=== PATIENT | female | born 1930 | race Caucasian/White ===

== ENCOUNTER 2018-11-17 21:56 | Inpatient (IN) ==
[2018-11-17 22:42] LABS: BASO# 0.04 X1000 (0.0-0.2); BASO% 0.8 % (0.0-0.8); EOS# 0.17 X1000 (0.0-0.7); EOS% 3.5 % (0.0-10.0); HEMATOCRIT 30.9 % (37.0-47.0); HEMOGLOBIN 9.1 g/dL (12.0-16.0); IMM GRAN# 0.02 X1000 (0.0-0.04); IMM GRAN% 0.4 % (0.0-0.5); LYMPH# 1.23 X1000 (1.2-3.4); LYMPH% 25.3 % (20.5-51.1); MCH 24.2 PG (27-31); MCHC 29.4 g/dL (33-37); MCV 82.2 FL (81-99); MONO# 0.53 X1000 (0.11-0.59); MONO% 10.9 % (1.7-9.3); MPV 9.3 FL (7.4-10.4); NEUT# 2.88 X1000 (1.4-6.5); NEUT% 59.1 % (42.2-75.2); PLT 256 X1000 (130-400); RBC 3.76 XMIL (4.2-5.4); RDW 20.1 % (11.5-14.5); WBC 4.87 X1000 (4.8-10.8)
[2018-11-17 23:04] LABS: AGAP 11; ALB/GLOB RATIO 0.8; ALBUMIN 2.6 g/dL (3.5-5.0); ALKALINE PHOSPHATASE 118 U/L (32-104); BUN 24 mg/dL (8-22); CALCIUM 8.4 mg/dL (8.8-10.2); CHLORIDE 102 mmol/L (98-107); COSMO 286; CREATININE 0.7 mg/dL (0.5-0.9); ESTIMATED GFR > 60; GLUCOSE 113 mg/dL (70-104); GOT 25 U/L (10-30); GPT 8 U/L (10-36); POTASSIUM 3.9 mmol/L (3.5-5.1); SODIUM 141 mmol/L (136-145); TCO2 28 mmol/L (25-35); TOTAL BILIRUBIN 0.81 mg/dL (0.20-1.00)
[2018-11-17 23:06] LABS: INR 3.6; PROTIME 38.4 Seconds (11.0-16.0)
[2018-11-18] MEDS ORDERED: VITAMIN K PO ONE (00:05)
--- NOTE | 2018-11-18 01:12 | PROVIDER DOCUMENTATION ---
This chart was entered by Kassie Wu Scribe, acting as scribe for Dejon Centeno MD. HPI-Abdominal Pain/GI Problem - General Chief Complaint: GI Bleed Stated Complaint: RECTAL BLEEDING Time Seen by Provider: 11/17/18 22:18 Source: patient Allergies/Adverse Reactions: Patient Allergies Allergy/AdvReac Type Severity Reaction Status Date / Time No Known Allergies Allergy Verified 11/18/18 00:43 Home Medications: Home Medication List Medication Instructions Recorded Confirmed Last Taken Type Aspirin 81 mg PO DAILY 04/24/13 11/18/18 11/17/18 History Levothyroxine [Synthroid] 125 microgm PO DAILY 04/24/13 11/18/18 11/17/18 History Polyethylene Glycol 3350 [Miralax] 17 gm PO DAILY 04/24/13 11/18/18 11/16/18 History Sotalol [Betapace] 80 mg PO Q12H #0 tablet 04/27/13 11/18/18 11/17/18 Rx Warfarin [Coumadin] 3 mg PO QHS #0 tablet 04/27/13 11/18/18 11/16/18 Rx Furosemide [Lasix] 1 tab PO DAILY 11/18/18 11/18/18 11/17/18 History Hydrochlorothiazide 1 tab PO DAILY 11/18/18 11/18/18 11/17/18 History Isosorbide Mononitrate E.r. [Imdur] 1 tab PO DAILY 11/18/18 11/18/18 11/17/18 History Losartan Potassium [Cozaar] 1 tab PO DAILY 11/18/18 11/18/18 11/17/18 History Ranitidine [Zantac] 1 tab PO DAILY 11/18/18 11/18/18 11/17/18 History - History of Present Illness-ABD Nature of Presenting Problems: pt is a 88 yr old female presenting with 1 day hx of passing blood, pt reports noticed bright red rectal bleeding onset last night, pt denies any pain, no nausea, vomiting or diarrhea. Quality of Pain: reports: none Severity in ED: reports: moderate Onset/Duration: reports: 24 hours ago Timing: reports: still present Activities at Onset: reports: light activity Exposure to sick contacts?: No Modifying Factors: improves with: nothing Associated Symptoms: denies: diarrhea, fatigue, fever/chills, nausea, vomiting, weakness Last BM: this evening Dark Stools Present?: reports: bright red blood Rectal Bleeding: reports: bleeding without stool Rectal Pain: reports: none Emesis Description: reports: none Bruising or Bleeding Gums?: No Similar Symptoms Previously?: No Recently seen or treated by another doctor?: No Review of Systems - Adult - REVIEW OF SYSTEMS - ADULT Constitutional: denies: fever, fatique Eyes: reports: no symptoms reported Ears, Nose, Mouth & Throat: reports: no symptoms reported Cardiovascular: reports: no symptoms reported Respiratory: denies: cough, shortness of breath Gastrointestinal: reports: rectal bleeding. denies: abdominal pain, hematemesis , diarrhea, nausea, vomiting Genitourinary: reports: no symptoms reported Musculoskeletal: reports: no symptoms reported Integumentary: reports: no symptoms reported Neurological: reports: no symptoms reported Psychiatric: reports: no symptoms reported Endocrine: reports: no symptoms reported Hematologic/Lymphatic: reports: no symptoms reported Allergic/Immunologic: reports: no symptoms reported All Other Systems: Reviewed and Negative Past History - Adult - PAST MEDICAL HISTORY-ADULT Review of Records: reports: Nursing Assessment Review, Medications Reviewed, Social history reviewed & non-contributory. Major Childhood Illnesses: reports: denies history Cardiovascular: reports: denies history Respiratory: reports: denies history Gastrointestinal: reports: denies history Obstetrical/Gynecological: reports: denies history Genitourinary: reports: denies history Musculoskeletal: reports: denies history Neurological: reports: denies history Endocrine/Immune: reports: denies history Other Conditions: reports: denies history - IMMUNIZATION STATUS Childhood Immunizations: See Nurse Assessment Flu Vaccine: See Nurse Assessment - FAMILY HISTORY Family History: reviewed, not pertinent - SOCIAL HISTORY Living Situation: family Physical Exam-General - PHYSICAL EXAM-ADULT Initial Vital Signs Reviewed: Yes - CONSTITUTIONAL General Appearance: appears well, alert, no apparent distress - EYES Eyes: PERRL/EOMI - HEAD, EARS, NOSE, MOUTH & THROAT HENMT: normocephalic/atraumatic, moist mucous membranes, normal ENT inspection - NECK Neck: non-tender, full range of motion, supple, normal inspection - RESPIRATORY Respiratory: chest non-tender, lungs clear, normal breath sounds - CARDIOVASCULAR Cardiovascular: normal peripheral pulses, regular rate, rhythm, no edema - GASTROINTESTINAL (ABDOMEN) Abdominal Exam: normal bowel sounds, non tender, soft - GENITOURINARY Rectal Exam: other (bright red blood noted). negative: hemorrhoids, mass - LYMPHATIC Lymphatic: no adenopathy - MUSCULOSKELETAL Back Exam: normal inspection, no CVA tenderness, no vertebral tenderness Extremity: normal range of motion, non-tender, normal gait, normal inspection - SKIN Integumentary: normal color, normal turgor, warm/dry - NEUROLOGIC Neurologic: grossly normal, no motor/sensory deficits - PSYCHIATRIC Psych/Mental Status: normal mood/affect, normal thought content, normal thought process, oriented x 3 Progress - PLAN OF CARE/RESULTS Progress/Plan/Lab Results: Laboratory Results - last 24 hr 11/17/18 11/17/18 11/17/18 22:19 22:19 22:19 WBC 4.87 RBC 3.76 L Hgb 9.1 L Hct 30.9 L MCV 82.2 MCH 24.2 L MCHC 29.4 L RDW Std Deviation 20.1 H Plt Count 256 MPV 9.3 Immature Gran % (Auto) 0.4 Neut % (Auto) 59.1 Lymph % (Auto) 25.3 [place] % (Auto) 10.9 H Eos % (Auto) 3.5 Baso % (Auto) 0.8 Immature Gran # (Auto) 0.02 Neut # (Auto) 2.88 Lymph # (Auto) 1.23 [place] # (Auto) 0.53 Eos # (Auto) 0.17 Baso # (Auto) 0.04 PT 38.4 H INR 3.60 Sodium 141 Potassium 3.9 Chloride 102 Carbon Dioxide 28 Anion Gap 11 BUN 24 H Creatinine 0.7 Estimated GFR/1.73 m2 > 60 BUN/Creatinine Ratio 34 Glucose 113 H Calculated Osmolality 286 Calcium 8.4 L Total Bilirubin 0.81 AST 25 ALT 8 L Alkaline Phosphatase 118 H Total Protein 6.0 L Albumin 2.6 L Globulin 3.4 Albumin/Globulin Ratio 0.8 Orders Category Date Time Status Saline Loc NOW Care 11/18/18 00:03 Active CBC WITH ELECTRONIC DIFF [HEME] Stat Lab 11/17/18 22:19 Completed CMP [COMPREHENSIVE METABOLIC PANEL] [CHEM] Stat Lab 11/17/18 22:19 Completed PROTIME WITH INR [COAG] Stat Lab 11/17/18 22:19 Completed Stool [OCCULT BLOOD SCREENING] [STOOL] Stat Lab 11/17/18 22:17 Uncollected TYPE & SCREEN [BBK] Stat Lab 11/17/18 22:19 Received Phytonadione [Vitamin K] Med 11/18/18 00:05 Discontinued 5 mg PO NOW ONE Result Diagrams: 11/17/18 22:19 11/17/18 22:19 - REASSESSMENT Reassessment #1 Time Reassessed: 01:10 - CONSULTS/PCP/HOSPITALIST Notification #1 *Consult/PCP/Hospitalist*: Dr Gallo Time Discussed: 01:11 Consult Disposition: Admit Departure - Departure Date of Disposition Decision: 11/18/18 Time of Disposition Decision: 01:10 DIAGNOSIS: GI bleeding Qualifiers: GI bleed type/associated pathology: anorectal hemorrhage Qualified Code(s): K62.5 - Hemorrhage of anus and rectum Disposition: ADMITTED INPATIENT 09 Certified Medical Emergency: Emergent Condition: Stable Referrals and Follow-Ups: Aimee Flores CRNP [Primary Care Provider] - - Critical Care Note This patient required my direct & personal management of CC.: No Attestation - Physician/ YANELIS Attestation The physician spent face to face time with patient:: Yes Advanced Practice Provider documentation review:: Supervising physician onsite and consulted in the evaluation and care of this patient. The physician did have a face to face encounter with the patient. This chart was documented by the indicated scribe, (Kassie Wu Scribe) and accurately reflects the services I performed and decisions made by me, Dejon Centeno MD, as attested by the provider's signature.
[2018-11-18] MEDS ORDERED: ZOFRAN IV PRN (01:30)
[2018-11-18] MEDS: PROTONIX IV SCH ×2 (02:55→14:30)
[2018-11-18] MEDS: SODIUM CHLORIDE 0.9% INJ SCH (02:55)
--- NOTE | 2018-11-18 04:04 | HISTORY AND PHYSICAL ---
CHIEF COMPLAINT: Blood in stool. HISTORY OF PRESENT ILLNESS: Ms. Collins is a very pleasant 88-year-old female with a past medical history of hypothyroidism, hypertension, atherosclerotic coronary artery disease, peripheral vascular disease, status post porcine aortic valve replacement in [address] Leslie at [facility] and chronic atrial fibrillation as well as congestive heart failure who is on chronic Coumadin anticoagulation, who comes in tonight after having 24 hours of bright red blood in her stool. She has family at bedside who state that she has had fairly copious amounts of bleeding roughly 1-2 bowel movements every hour. On arrival, the patient was noted to be pale. Her hemoglobin and hematocrit were 9.1 and 30.9 respectively. Her INR was noted to be 3.60 but with her valve replacement they stated they shoot for a goal of 2.6-3.6 on her INR. She was given 5 mg of vitamin K p.o. by the ER provider. She will receive 2 units of FFP as well as 1 unit of PRBC with 40 mg of Lasix in between. She will be placed in the ICU for further evaluation and treatment and GI consultation. PAST MEDICAL HISTORY: See HPI. PREVIOUS SURGICAL HISTORY: 1. Right hip in 2009. 2. Hysterectomy in 1973. 3. Porcine aortic valve replacement in 2006. 4. Left knee replacement in 2011. ALLERGIES: No known drug allergies. FAMILY HISTORY: Father at 52 from a myocardial infarction. Mother at 75 from a stroke. One brother from myocardial infarction, another with coronary artery disease. One brother related to suicide. SOCIAL HISTORY: with 4 children. Has 13 grandchildren and 20 great- grandchildren. No tobacco, alcohol or illicit drugs. HOME MEDICATIONS: A list of home medications has not been reconciled. An order was placed for Nursing to reconcile home medications in the computer. These will be restarted when appropriate. PHYSICAL EXAMINATION: VITAL SIGNS: Temperature 97.4, pulse 77, respirations 24, blood pressure 111/70 , oxygen saturation 98% on room air. GENERAL: Very pleasant 88-year-old female somewhat hard of hearing, alert and oriented times 3, answers all questions appropriately. Family at bedside very attentive. HEENT: Head is atraumatic, normocephalic. Pupils equal, round, reactive to light. Extraocular eye movement intact. Sclerae are anicteric. Conjunctiva is pale. Oral mucosa is mildly dry. NECK: Supple. No JVD. No thyromegaly. Trachea is midline. No cervical lymphadenopathy. CARDIAC: S1 and S2 appreciated. No murmurs, gallops, rubs. LUNGS: Clear to auscultation bilaterally. No rhonchi, wheezes, rales. Symmetric rise and fall with respirations. ABDOMEN: Soft, nondistended, nontender. Bowel sounds present all 4 quadrants, hyperactive. No pulsatile mass. No organomegaly. EXTREMITIES: No clubbing or cyanosis. One-plus pitting edema bilateral lower extremities. Chronic color change noted to bilateral lower extremities likely related to chronic venostasis. One-plus pedal pulses bilaterally. GENITOURINARY: No bladder distention. Patient voids. Otherwise deferred. NEUROLOGICAL: Alert and oriented times 3. Cranial nerves II through XII grossly intact. Patient is hard of hearing as noted above. LABORATORY DATA: WBC 4.87. Hemoglobin 9.1. Hematocrit 30.9. Platelet count 256. INR 3.60. Sodium 141. Potassium 3.9. Chloride 102. Carbon dioxide 28. BUN 24. Creatinine 0.7. Glucose 113. ASSESSMENT AND PLAN: 1. Lower gastrointestinal bleed. Consult Dr. Johnson. Protonix 40 mg IV q.12 hours. Vitamin K 5 mg was given in the emergency room by mouth. We will give 2 units of FFP and transfuse 1 unit of packed red blood cells. Recheck hemoglobin and hematocrit q.6 hours. We will transfuse further if needed. 2. Congestive heart failure, diastolic in nature. Patient is not in acute exacerbation. We will give 40 mg of Lasix after FFP. I believe she takes Lasix at home. This can be restarted when appropriate. 3. Chronic atrial fibrillation. We will continue medications for rate control when appropriate. 4. Chronic Coumadin anticoagulation with porcine aortic valve replacement. Check INR daily. As noted, patient has been mildly reversed. Once the source of bleeding has been found, Coumadin can be restarted once signed off by GI. 5. Acute blood loss anemia. See above. Further recommendations per patient clinical course. Dictated by SVEN Gill for Brayan Gallo MD cc: SVEN Gill MD Juliana Clark, CRNP Khurshid Wali, MD Independent exam and assessment at bedside performed by me and INSTRUCTOR [employer]ERG[employer]. Exam notable for pallor, decreased pulse volume and 3/6ESM. Discussed above plan of care with INSTRU[employer]. H and H to be monitored q6h. Immediate reversal of hypercoagulable state to allow for endoscopy. Suspect that pt may have diverticular bleed. If bleeding persists and is heavy, consider angiogram. Stroke risk in this patient is moderate because of A fib and porcine valve, however risk of bleeding is near 100% and is currently continuous hence the need for endoscopic intervention. MTDD
[2018-11-18 05:00] LABS: BASO# 0.03 X1000 (0.0-0.2); BASO% 0.6 % (0.0-0.8); EOS# 0.17 X1000 (0.0-0.7); EOS% 3.4 % (0.0-10.0); LYMPH# 1.27 X1000 (1.2-3.4); LYMPH% 25.5 % (20.5-51.1); MCH 24.5 PG (27-31); MCHC 29.6 g/dL (33-37); MCV 82.8 FL (81-99); MONO# 0.64 X1000 (0.11-0.59); MONO% 12.9 % (1.7-9.3); MPV 9.3 FL (7.4-10.4); NEUT# 2.87 X1000 (1.4-6.5); NEUT% 57.6 % (42.2-75.2); PLT 229 X1000 (130-400); RBC 3.26 XMIL (4.2-5.4); WBC 4.98 X1000 (4.8-10.8)
[2018-11-18] MEDS ORDERED: LASIX IV ONE (05:00)
[2018-11-18 06:14] LABS: INR 3.48; PROTIME 37.4 Seconds (11.0-16.0)
[2018-11-18 06:33] LABS: BUN 26 mg/dL (8-22); CALCIUM 8.5 mg/dL (8.8-10.2)
[2018-11-18 06:51] LABS: AGAP 9; CHLORIDE 108 mmol/L (98-107); CREATININE 0.8 mg/dL (0.5-0.9); ESTIMATED GFR > 60; GLUCOSE 122 mg/dL (70-104); POTASSIUM 3.8 mmol/L (3.5-5.1); SODIUM 147 mmol/L (136-145); TCO2 30 mmol/L (25-35)
[2018-11-18 07:26] LABS: COSMO 298
[2018-11-18] MEDS ORDERED: VITAMIN K SUBQ SCH (11:34)
[2018-11-18] MEDS: VITAMIN K SUBQ SCH (12:13)
[2018-11-18 12:19] LABS: BASO# 0.01 X1000 (0.0-0.2); BASO% 0.2 % (0.0-0.8); EOS# 0.14 X1000 (0.0-0.7); EOS% 3.2 % (0.0-10.0); HEMATOCRIT 28.8 % (37.0-47.0); HEMOGLOBIN 8.8 g/dL (12.0-16.0); LYMPH# 0.81 X1000 (1.2-3.4); LYMPH% 18.4 % (20.5-51.1); MCH 25.4 PG (27-31); MCHC 30.6 g/dL (33-37); MCV 83.2 FL (81-99); MONO# 0.66 X1000 (0.11-0.59); MPV 9.4 FL (7.4-10.4); NEUT# 2.79 X1000 (1.4-6.5); NEUT% 63.2 % (42.2-75.2); PLT 196 X1000 (130-400); RBC 3.46 XMIL (4.2-5.4); RDW 19.2 % (11.5-14.5); WBC 4.41 X1000 (4.8-10.8)
[2018-11-18 12:35] LABS: INR 1.8; PROTIME 22.3 Seconds (11.0-16.0)
--- NOTE | 2018-11-18 12:36 | PROGRESS NOTE ---
DATE: 11/18/2018 SUBJECTIVE: Ms. Collins came in. She had quite a bit of bleeding the day before. Presented this morning. Her granddaughter is with her. She sees SVEN Garcia. She has had a bleed before which I think was a diverticular bleed. I think she had a colonoscopy per Dr. Casper a couple years ago. She does have diverticulosis. She denies any fever or pain. PAST MEDICAL HISTORY: History of hypothyroidism, hypertension, atherosclerotic coronary artery disease, peripheral vascular disease, status post porcine aortic valve replacement per Dr. Leslie and is on Coumadin anticoagulation and apparently also has a history of atrial fibrillation. PAST SURGERY HISTORY: She has had right hip replacement, I think, in 2009. Hysterectomy in 1973. Porcine aortic valve replacement in 2006, left knee replacement in 2011. ALLERGIES: No known drug allergies. Dr. Johnson has seen her. She is on Protonix 40 mg IV q. 12, vitamin K. She got 5 mg, and she got 2 units of fresh frozen, 1 unit of packed red blood cells and recheck and continue to follow hematocrit and hemoglobin. Hematocrit this morning 27, hemoglobin was 8. So, we will continue present management. GI is following, Dr. Johnson. Her ProTime was 38. INR 3.6. cc: Mina Rivera MD
[2018-11-18 17:55] LABS: BASO# 0.02 X1000 (0.0-0.2); BASO% 0.3 % (0.0-0.8); EOS# 0.11 X1000 (0.0-0.7); EOS% 1.6 % (0.0-10.0); HEMATOCRIT 29.1 % (37.0-47.0); IMM GRAN# 0.02 X1000 (0.0-0.04); IMM GRAN% 0.3 % (0.0-0.5); LYMPH# 0.94 X1000 (1.2-3.4); LYMPH% 13.5 % (20.5-51.1); MCH 25.5 PG (27-31); MCHC 30.9 g/dL (33-37); MCV 82.4 FL (81-99); MONO# 0.84 X1000 (0.11-0.59); MONO% 12.1 % (1.7-9.3); MPV 9.6 FL (7.4-10.4); NEUT# 5.01 X1000 (1.4-6.5); NEUT% 72.2 % (42.2-75.2); PLT 217 X1000 (130-400); RBC 3.53 XMIL (4.2-5.4); RDW 19.3 % (11.5-14.5); WBC 6.94 X1000 (4.8-10.8)
[2018-11-19] MEDS ORDERED: NORCO-7.5 PO ONE (00:21)
[2018-11-19 00:51] LABS: BASO# 0.02 X1000 (0.0-0.2); BASO% 0.3 % (0.0-0.8); EOS# 0.05 X1000 (0.0-0.7); EOS% 0.7 % (0.0-10.0); HEMATOCRIT 27.7 % (37.0-47.0); HEMOGLOBIN 8.4 g/dL (12.0-16.0); LYMPH% 14.6 % (20.5-51.1); MCH 24.9 PG (27-31); MCHC 30.3 g/dL (33-37); MONO% 11.9 % (1.7-9.3); NEUT# 5.49 X1000 (1.4-6.5); NEUT% 72.5 % (42.2-75.2); PLT 226 X1000 (130-400); RBC 3.38 XMIL (4.2-5.4); RDW 19.1 % (11.5-14.5); WBC 7.56 X1000 (4.8-10.8)
[2018-11-19] MEDS: PROTONIX IV SCH ×2 (03:30→14:28)
[2018-11-19 06:55] LABS: BASO# 0.02 X1000 (0.0-0.2); BASO% 0.3 % (0.0-0.8); EOS# 0.07 X1000 (0.0-0.7); EOS% 1.1 % (0.0-10.0); HEMATOCRIT 27.1 % (37.0-47.0); HEMOGLOBIN 8.3 g/dL (12.0-16.0); LYMPH# 1.16 X1000 (1.2-3.4); LYMPH% 17.8 % (20.5-51.1); MCH 25.4 PG (27-31); MCHC 30.6 g/dL (33-37); MCV 82.9 FL (81-99); MONO% 15.3 % (1.7-9.3); MPV 9.6 FL (7.4-10.4); NEUT# 4.28 X1000 (1.4-6.5); NEUT% 65.5 % (42.2-75.2); PLT 236 X1000 (130-400); RBC 3.27 XMIL (4.2-5.4); RDW 19.5 % (11.5-14.5); WBC 6.53 X1000 (4.8-10.8)
[2018-11-19 09:59] LABS: AGAP 10; ALB/GLOB RATIO 0.9; ALBUMIN 2.8 g/dL (3.5-5.0); ALKALINE PHOSPHATASE 89 U/L (32-104); BUN 24 mg/dL (8-22); CALCIUM 8.3 mg/dL (8.8-10.2); CHLORIDE 102 mmol/L (98-107); COSMO 290; CREATININE 0.7 mg/dL (0.5-0.9); ESTIMATED GFR > 60; GLUCOSE 109 mg/dL (70-104); GOT 28 U/L (10-30); GPT 9 U/L (10-36); POTASSIUM 3.7 mmol/L (3.5-5.1); SODIUM 143 mmol/L (136-145); TCO2 31 mmol/L (25-35); TOTAL BILIRUBIN 1.27 mg/dL (0.20-1.00); TOTAL PROTEIN 5.8 g/dL (6.3-8.3)
[2018-11-19] MEDS: SYNTHROID PO SCH (10:14)
[2018-11-19] MEDS: VITAMIN K SUBQ SCH (10:14)
[2018-11-19 11:59] LABS: BASO# 0.02 X1000 (0.0-0.2); BASO% 0.3 % (0.0-0.8); EOS# 0.13 X1000 (0.0-0.7); EOS% 1.9 % (0.0-10.0); HEMATOCRIT 28.7 % (37.0-47.0); HEMOGLOBIN 8.7 g/dL (12.0-16.0); IMM GRAN# 0.02 X1000 (0.0-0.04); IMM GRAN% 0.3 % (0.0-0.5); LYMPH# 1.01 X1000 (1.2-3.4); LYMPH% 15.1 % (20.5-51.1); MCH 25.3 PG (27-31); MCHC 30.3 g/dL (33-37); MCV 83.4 FL (81-99); MONO# 0.94 X1000 (0.11-0.59); MPV 9.5 FL (7.4-10.4); NEUT# 4.59 X1000 (1.4-6.5); NEUT% 68.4 % (42.2-75.2); PLT 220 X1000 (130-400); RBC 3.44 XMIL (4.2-5.4); RDW 19.6 % (11.5-14.5); WBC 6.71 X1000 (4.8-10.8)
[2018-11-19 12:10] LABS: INR 1.36; PROTIME 17.8 Seconds (11.0-16.0)
--- NOTE | 2018-11-19 14:01 | PROGRESS NOTE ---
DATE: 11/19/2018 SUBJECTIVE: Ms. Collins has not any further bleeding even sitting up. She says she feels fine. Blood pressures look good. OBJECTIVE: Vitals: Currently blood pressure 140/71, pulse 88, respirations 18. Lungs: Are clear in all lung [place]. Cardiovascular: Regular rhythm and rate without murmur or S3. Abdomen: Soft, nontender, nondistended. Skin: Warm and dry. WEIGHT: 145 pounds. LABORATORY: She is on Protonix 40 mg IV q.12h. Got some vitamin K 5 mg and had 2 units fresh frozen. One pack of red blood cells. Her blood counts were stable. Hematocrit 28, hemoglobin 8.7, electrolytes unremarkable. Blood sugar 113, 122, 109. Albumin is 2.8. TSH was 8.62. ASSESSMENT AND PLAN: Lower gastrointestinal bleed. Continue present orders. The coagulation ProTime is 17.8 and INR is 1.36. If she is stable and no further bleeding, will probably let her go home and we will need to make a decision on her Coumadin. She was on 3 mg at bedtime. cc: Mina Rivera MD
[2018-11-19] MEDS: SODIUM CHLORIDE 0.9% INJ SCH (14:28)
[2018-11-19] MEDS: BETAPACE PO SCH (14:28)
[2018-11-19] MEDS: LASIX PO SCH (14:28)
--- NOTE | 2018-11-19 21:44 | CONSULTATION ---
DATE OF CONSULTATION: 11/18/2018 REASON FOR CONSULTATION: Hematochezia . HISTORY PRESENT ILLNESS: Pleasant 88-year-old lady with history of hypothyroidism, hypertension status post aortic valve replacement in 2006 has been on Coumadin for anticoagulation. For the last couple of days she has been having bloody stools. PAST MEDICAL HISTORY: As above. PREVIOUS SURGICAL HISTORY: Right hip 12/24, aortic valve replacement 2006, hysterectomy 1973, left knee replacement 2011 SOCIAL: , 4 children 13 grandchildren 20 great grandchildren . HOME MEDICATION: Reconsulted. PHYSICAL EXAM: Vitals: Temperature 97.4 degrees, pulse [*]respiratory 24, blood pressure 111/70, O2 saturation 98%. General: Elderly lady renae. There is conjunctival pallor present. Neck: Supple. Trachea midline. Heart and Lungs: Normal, I could barely hear a click. Abdomen: Soft, nontender, bowel sounds present. Extremity: 1+ edema. Neurological: Alert and oriented. LABORATORY DATA: Hemoglobin 9, hematocrit 30.9, INR 3.60. IMPRESSION AND PLAN: 1. Lower gastrointestinal bleed likely diverticular. 2. Hyper coagulopathy from Coumadin, patient received 2 units of fresh frozen plasma, we also will give subcutaneous vitamin K. 3. Congestive heart failure. 4. Chronic atrial fibrillation. 5. Reverse Coumadin toxicity. 6. Acute blood loss anemia. 7. Her hematocrit has not dropped below 28 although she did receive 1 unit of RBC and 2 units fresh frozen. Her PT is high at 38 but it is coming down to 22 later in the evening today, continue vitamin K for now, GI prophylaxis, not planning any endoscopy at this time. It appears to be lower gastrointestinal, will follow. cc: Davin Johnson MD
[2018-11-20] MEDS: SYNTHROID PO SCH ×2 (05:58→06:18)
[2018-11-20] MEDS ORDERED: SYNTHROID PO SCH (07:00)
--- NOTE | 2018-11-20 07:04 | EKG Report ---
Test Performed on : 11/18/2018 06:17:34 AM Test Reason : chest pain Blood Pressure : / mmHG Vent. Rate : 078 BPM Atrial Rate : 078 BPM P-R Int : 240 ms QRS Dur : 094 ms QT Int : 414 ms P-R-T Axes : 000 038 202 degrees QTc Int : 471 ms Sinus rhythm. with 1st degree AV block. with premature atrial complexes. with aberrant conduction. Nonspecific T wave abnormality Prolonged QT Abnormal ECG When compared with ECG of 27-APR-2013 05:53, aberrant conduction. is now present NV interval has increased Nonspecific T wave abnormality now evident in Inferior leads Confirmed by Alayna BAIRES, Omar Wilson ([id number]) on 11/20/2018 9:39:49 AM
[2018-11-20] MEDS: SODIUM CHLORIDE 0.9% INJ SCH (08:51)
[2018-11-20] MEDS: PROTONIX IV SCH (08:51)
[2018-11-20] MEDS: LASIX PO SCH (08:51)
[2018-11-20] MEDS: BETAPACE PO SCH (08:51)
[2018-11-20] MEDS ORDERED: VITAMIN K 10 MG in NS 50 ML IV ONE (08:59)
[2018-11-20] MEDS ORDERED: CENTRUM SILVER PO SCH (09:00)
[2018-11-20] MEDS ORDERED: ICAR-C PO SCH (09:00)
[2018-11-20] MEDS ORDERED: MIRALAX PO SCH (10:15)
[2018-11-20 11:41] VITALS: BP 120/61
--- NOTE | 2018-11-20 11:47 | PROGRESS NOTE ---
DATE: 11/20/2018 *lease see the dictated note for 11-20-18 cc: Pavel Marlow MD MTDD
--- NOTE | 2018-11-20 11:59 | PROGRESS NOTE ---
DATE: 11/20/2018 SUBJECTIVE: The patient is resting in bed. I spoke to the patient's daughter at bedside. The patient denied any more rectal bleeding. Her last colonoscopy was 5 years ago. She had her breakfast this morning. PHYSICAL EXAMINATION: Vital Signs: Temperature of 98.1 degrees, pulse rate of 99, respiratory rate of 20, blood pressure 116/61, saturating 100% on room air. General Appearance: Moderately built, lying in bed, in no acute distress. HEENT: Pale conjunctivae. No icterus. Neck: Supple. Abdomen: Protuberant. Tympanic on percussion. No rebound or guarding. Extremities: No cyanosis, clubbing. Neurologic: She is alert, awake, oriented. Answers all questions. LABS: Hemoglobin and hematocrit are 8.7 and 28.7, white count of 6.7, platelet count of 220,000. Sodium of 143, potassium 3.7, chloride 102, bicarb of 31, anion gap 10, BUN of 24, creatinine 0.7, glucose of 109, calcium is 8.3. Total bilirubin is 1.27, AST 28, ALT 9, alkaline phosphatase 89, total protein 5.8, albumin of 2.8. INR 1.36, PT of 17.8. Stool for occult blood is positive. Chest x-ray was done, last done on 11/01/18 which showed cardiomegaly and no pulmonary edema. IMPRESSION AND PLAN: 1. Gastrointestinal bleeding which has stopped now, likely diverticular in origin. I have discussed the option of doing colonoscopy with the patient's family at bedside. They would like to continue with conservative management at this time but if the patient continues to have recurrent gastrointestinal bleeding or persistent anemia, then we may have to consider esophagogastroduodenoscopy and colonoscopy. INR is being corrected with vitamin K. 2. Coagulopathy. We will give one more dose of vitamin K today. 3. Anemia. Continue iron C twice a day and multivitamin once daily. 4. Gastrointestinal prophylaxis with proton pump inhibitors. 5. Constipation. She will start on MiraLAX 17 g by mouth twice a day. 6. We will start her on Metamucil 1 tablespoon at bedtime for diverticulosis. 7. The above plan was discussed with the patient and family, and all questions were answered. Please call us with any further questions. cc: MD Mina Akhtar MD Juliana Clark, CRNP MTDD
--- NOTE | 2018-11-20 13:36 | DISCHARGE SUMMARY ---
ADMISSION DATE: 11/18/2018 DISCHARGE DATE: 11/20/2018 Her provider is SVEN Howe. She had some blood in her stool. Noticed quite a bit, soaked several pads. She is on Coumadin and no pain, no fever or chills. So, we watched her and held her Coumadin. Her pro-time came down to an INR of 1.36. PT was 17.8. She felt well. Her hematocrit remained stable at hematocrit 28, hemoglobin 8.7, and so felt like she could go home. She is hemodynamically stable. We will discharge her home on her home medications. She can start back on her aspirin 81 mg a day, Lasix once a day, hydrochlorothiazide once a day, Imdur 1 tablet daily, Synthroid 125 mcg daily, Cozaar 1 a day, MiraLAX: She was taking 17 g daily, Zantac 1 tablet daily, Betapace 80 mg twice a day, and we will put her back on Coumadin at 2.5 mg a day. Note that when she presented, her pro-time was 38.4, and that was on 3 mg a day. So want her to check a pro-time every week. I suspect she had a little small bleed related to diverticulosis, so we will discharge her home today. cc: Mina Rivera MD
[2018-11-21] MEDS ORDERED: METAMUCIL POWDER PACKET PO SCH (09:00)
== END 2018-11-20 15:30 | disposition home or self-care (01) | DRG 813 ==
LOC: ED 21:56 → SUATTDRO 11-18 02:35 → EDIPHOLD 11-18 02:35 → 3N 11-19 12:26
PROVIDERS: ATTEND Emergency Medicine
CPT/HCPCS: 36415; 36430; 51702; 80048; 80053; 82270; 84443; 85025; 85610; 86850; 86900; 86901; 86920; 93005; 96372; 96374; 96375; 96376; 99285; A9270; C9113; J1940; J3430; P9016; P9017; S0164